=== PATIENT | female | born 1985 | race Caucasian/White ===

== ENCOUNTER → 2018-06-21 | Outpatient (CLI) | payer OTHER ==
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
== END ==
LOC: SLEEP 13:57
PROVIDERS: ATTEND Internal Medicine Critical Care Medicine
DX: F51.04 Psychophysiologic insomnia (principal); F41.9 Anxiety disorder, unspecified; F32.9 Major depressive disorder, single episode, unspecified
CPT/HCPCS: 99211

== ENCOUNTER → 2019-06-10 | Outpatient (CLI) | payer OTHER ==
--- NOTE | 2019-06-12 07:11 | XR ---
EXAMINATION TYPE: XR foot complete bilateral DATE OF EXAM: 06/10/2019 CLINICAL HISTORY: Bilateral feet pain TECHNIQUE: Frontal, lateral, and oblique images of the bilateral feet are obtained. COMPARISON: None FINDINGS: There is no acute fracture/dislocation evident in either foot. The joint spaces in both f eet appear within normal limits. No significant arthropathy. Osseous mineralization is within normal limits. No radiopaque foreign body. The overlying soft tissue appears unremarkable. IMPRESSION: Unremarkable radiograph of the bilateral feet.
== END | disposition home or self-care (01) ==
LOC: RADXRMAIN 12:02
PROVIDERS: ATTEND Physician Assistant
DX: M79.673 Pain in unspecified foot (principal)